=== PATIENT | female | born 1990 | race Caucasian/White ===

== ENCOUNTER 2024-09-20 16:11 | Emergency (ER) | payer OTHER ==
[~2024-09-20] VITALS: Ht 170.2 cm; Wt 75.0 kg
[2024-09-20] MEDS ORDERED: TRAZ-252 PO (16:30)
[2024-09-20] MEDS ORDERED: ERYT3.5O8 OU (16:30)
[2024-09-20] MEDS ORDERED: GABA-1181 PO (16:30)
[2024-09-20] MEDS ORDERED: FLUT16H NASAL (16:30)
[2024-09-20] MEDS ORDERED: MULT-1366 PO (16:30)
[2024-09-20 16:33] VITALS: BP 103/65; PULSE 91; RESP 18; TEMP 99.3; O2SAT 98
[2024-09-20 16:59] LABS: COVID AG,FIA SOURCE NASAL SWAB
[2024-09-20 17:08] LABS: RAPID GROUP A STREP NEGATIVE (NEGATIVE)
[2024-09-20 17:17] LABS: INFLUENZA TYPE A NEGATIVE FOR TYPE A (NEGATIVE); INFLUENZA TYPE B NEGATIVE FOR TYPE B (NEGATIVE); SARS-COV2 (COVID) ANTIGEN,FIA Negative (Negative)
[2024-09-20] MEDS ORDERED: AZIT250T9 PO (21:11)
== END 2024-09-20 22:40 | disposition home or self-care (01) ==
LOC: EMS 16:11
DX: J18.0 Bronchopneumonia, unspecified organism (principal); M06.9 Rheumatoid arthritis, unspecified; Z88.0 Allergy status to penicillin; Z20.822 Contact with and (suspected) exposure to COVID-19
CPT/HCPCS: 71045; 87430; 87804; 99284